=== PATIENT | female | born 1980 | race Caucasian/White ===

== ENCOUNTER → 2016-12-07 | Outpatient (CLI) | payer OTHER ==
[~2016-12-07] MED LIST: ALBUTEROL17 GM INH; BENZONATATE PO; IBUPROFEN PO; KEFLEX PO; MOTRIN600 M1 PO; NO MEDICATIONS; NORCO 5/325 TAB1 TAB PO; PHENERGAN PO; PRENATAL MULITV1 TAB PO; VICODIN 5/500 T1 TAB PO; ZITHROMAX PO; [UNRECOGNIZED DRUG - REMARK]
--- NOTE | ~2016-12-07 | US128 ---
[id number] [facility]. [facility] [address]. [place], [place] [address] [id number] O MR#: [id number] Acc #: [id number] NAME: ARTIE ACOSTA : 1980 SEX: F STUDY DATE/TIME: 12/07/2016 13:14 UNIT: [facility]US ROOM: STUDY DESCRIPTION: Thyroid Attending Physician: Estela Chun M.D. Referring Physician: Estela Chun M.D. Ordering Physician: Estela Chun M.D. Primary Care Physician: Estela Chun M.D. MEDICAL IMAGING REPORT This report is preliminary unless electronic signature is present EXAM Thyroid ultrasound, 12/07/2016. COMPARISON None. CLINICAL HISTORY Hyperparathyroidism and thyromegaly on physical exam, 2 days ago. 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 No discrete nodule is seen in the gland on either side. IMPRESSION No discrete nodule in the gland on either side. Mildly prominent slightly heterogeneous gland bilaterally with slight hypervascularity, pattern typical of Bella's disease. Dictated by... Yao Wallis M.D. THIS IS AN ELECTRONICALLY VERIFIED REPORT Yao Wallis M.D. at 12/09/2016 5:31 PM Renuka TD: 12/07/2016 18:17 JOB #: [id number] MEDICAL IMAGING REPORT Page 1 of 1 COPY
== END | disposition home or self-care (01) ==
LOC: CGUS 12:52
DX: E05.90 Thyrotoxicosis, unspecified without thyrotoxic crisis or storm (principal); E04.9 Nontoxic goiter, unspecified
CPT/HCPCS: 76536